=== PATIENT | male | born 1960 | race Caucasian/White ===

== ENCOUNTER 2018-10-27 15:58 | Emergency (ER) | payer OTHER ==
[~2018-10-27] VITALS: Ht 172.7 cm; Wt 98.4 kg
[2018-10-27] MEDS ORDERED: TOPROL XL200 MG (16:07)
[2018-10-27] MEDS ORDERED: LOSARTAN POTAS100 MG (16:07)
[2018-10-27] MEDS ORDERED: ASA81 MG (16:07)
[2018-10-27] MEDS ORDERED: NORVASC5 MG (16:07)
== END 2018-10-27 20:44 | disposition home or self-care (01) ==
LOC: ER 15:58
DX: R42 Dizziness and giddiness (principal)